=== PATIENT | male | born 1995 | race Caucasian/White ===

== ENCOUNTER 2024-09-11 08:57 | Emergency (ER) | payer OTHER, SELFPAY ==
[2024-09-11 09:49] VITALS: BP 144/97; PULSE 77; RESP 16; TEMP 36.5; O2SAT 100
--- NOTE | 2024-09-11 09:52 | ED.URI ---
HPI - URI/Sore Throat General Chief Complaint: Upper Respiratory Infection Stated Complaint: Test Flu/Covid/Strep/Pneumonia Time Seen by Provider: 09/11/24 09:52 Source: patient, RN notes reviewed and old records reviewed Mode of arrival: ambulatory Limitations: no limitations History of Present Illness HPI Narrative: 29-year-old male to Express Care with complaint sinus congestion. Patient states that 2 days ago he had a fever and a cough. Patient requesting testing for strep, COVID, influenza, pneumonia. Patient states that his [id number] is scheduled for a double mastectomy and that his insisted that he be seen today to rule out everything. Patient's only complaint today is sinus congestion. Patient resting comfortably in exam room in no acute distress. Patient able to speak in complete sentences without difficulty. Patient able to tolerate fluids by mouth. Related Data Home Medications Medication Instructions Recorded Confirmed No Home Medications 09/11/24 09/11/24 Allergies Allergy/AdvReac Type Severity Reaction Status Date / Time No Known Allergies Allergy Verified 09/11/24 09:46 Review of Systems Review of Systems: All systems reviewed & are unremarkable except as noted in HPI and below Constitutional: Constitutional: Reports no additional constitutional complaints Eyes: Eyes: Reports no additional eye complaints ENT: Reports as per HPI and Reports nasal congestion Cardiovascular: Cardiovascular: Reports no additional cardiovascular complaints, Denies chest pain and Denies dyspnea Respiratory: Respiratory: Reports no additional respiratory complaints, Denies cough and Denies dyspnea Musculoskeletal: Musculoskeletal: Reports no additional musculoskeletal complaints Neurologic: Reports system reviewed and no additional complaints, except as documented Psychiatric: Psychiatric: Reports no additional psychiatric complaints PMFSH Comments At the time of my signature, I reviewed and agree with the nursing past medical, surgical, social, and family history. There is no relevant family history pertinent to the patient complaint. Exam Const: General: cooperative, no acute distress, alert, tired appearing and well nourished Nutritional Appearance: well nourished Orientation/consciousness: patient oriented x3 Limitations: no limitations HENMT: Head: normal to inspection Ears: external ears normal Face/Nose/Sinus: Normal external nose present, Normal nares present, normal facial exam, No erythema and No edema Face and sinus: normal facial exam, no erythema and no edema Mouth: Yes Normal oral and palatal mucosa present Eyes: General: appearance normal, both eyes and all related structures Neck: Neck: normal visual inspection, full ROM and no meningeal signs Lymphatic: no lymphadenopathy noted and no lymphedema noted Chest: Chest palpation & inspection: normal inspection of the chest Resp: Effort & Inspection: normal respiratory effort and able to speak in complete sentences Auscultation: clear to auscultation bilaterally Cardio: Jugular venous distension: no JVD Rate: regular rate Rhythm: regular rhythm Back/Spine/Pelvis: Cervical Spine: cervical ROM normal Skin: General skin exam: normal color, no rashes or lesions noted and turgor normal Neuro: General: patient oriented x3, gait normal, moves all extremities and no meningeal signs Speech: normal speech Gait exam (Neuro): Normal gait present Extrem: General: normal to inspection, full ROM and capillary refill normal Psych: Appearance: grossly normal and well kempt Course Course Emergency Course: Some parts of this dictation were generated by voice recognition software and may contain typographical and/or grammatical inaccuracies. Level of Care: Express Care Visit Vital Signs Vital signs: Vital Signs Temperature 36.5 C 09/11/24 09:49 Pulse Rate 77 09/11/24 09:49 Respiratory Rate 16 09/11/24 09:49 Blood Pressure 144/97 H 09/11/24 09:49 Pulse Oximetry 100 09/11/24 09:49 Oxygen Delivery Room Air 09/11/24 09:49 Temperature 36.5 C 09/11/24 09:49 Pulse Rate 77 09/11/24 09:49 Respiratory Rate 16 09/11/24 09:49 Blood Pressure 144/97 H 09/11/24 09:49 Pulse Oximetry 100 09/11/24 09:49 Oxygen Delivery Room Air 09/11/24 09:49 reviewed MDM - URI/Sore Throat MDM Narrative Medical decision making narrative: 29-year-old male to Express Care with complaint sinus congestion. Patient states that 2 days ago he had a fever and a cough. Patient requesting testing for strep, COVID, influenza, pneumonia. Patient states that his [id number] is scheduled for a double mastectomy and that his insisted that he be seen today to rule out everything. Patient's only complaint today is sinus congestion. Patient resting comfortably in exam room in no acute distress. Patient able to speak in complete sentences without difficulty. Patient able to tolerate fluids by mouth. On exam, patient appears tired. Physical exam otherwise unremarkable. Patient tested positive for COVID in clinic. Patient is sitting comfortably in exam room nontoxic in appearance. Patient appropriate for outpatient treatment and follow-up. Discharge instructions reviewed with patient, as well as provided in writing per nursing staff. The instructions also include specific and strict return/GO TO THE ER as well as f/u information. All questions have been answered, and the patient deny any further questions with discharge and discharge plan. Some parts of this dictation were generated by voice recognition software and may contain typographical and/or grammatical inaccuracies. Differential Diagnosis Differential diagnosis: Likely upper respiratory infection, croup, otitis media, sinusitis, viral infection, bronchitis, influenza and pharyngitis Discharge Plan Discharge Clinical Impression: COVID Patient Disposition: Home, Self-Care Condition: Stable Instructions: COVID-19 (Coronavirus Disease 2019) (ED) Additional Instructions: Your symptoms are likely due to a viral illness, which is not treated with antibiotics. Viral symptoms can be present for up to a few weeks. -Alternate Tylenol and Motrin per package directions for fever or pain. -Antihistamine medication such as Benadryl at night and Zyrtec/Claritin/Jocelyn during the day can help improve symptoms. -Use Flonase twice a day for 5 days then daily to help reduce the inflammation and dry up your sinuses. -You can also use Sudafed or Mucinex. Be sure to drink plenty of water with these medications at least 8 ounces with every dose and it is important to drink 8 to 10 glasses of water per day. Water is a natural decongestant -Eat and drink things that are easy to swallow, like tea or soup, or popsicles. -Oral rinses such as: Salt water gargles and/or may use topical anesthetic (eg. Chloraseptic spray) or lozenges to relieve dryness or throat pain). -Frequent hand washing or hand soldering machine operator automatic is one of the best ways to prevent spread of infection. -Using a vaporizer or humidifier at night will also help thin secretions and help with coughing up phlegm. -Follow up with primary care provider in 2-3 days if condition is not improving; or seek ER visit if you have trouble breathing, cannot drink enough fluids, have muffled voice, difficulty opening your mouth, or severe swelling. Prescriptions: No Action No Home Medications Follow-up/Referrals: Nereyda,Petar Hui MD [Primary Care Provider] - Stand Alone Forms: Work/School Release IP
[2024-09-11 10:24] LABS: EDINFLUASCREEN Negative (Negative); EDINFLUBSCREEN Negative (Negative)
[2024-09-11 10:26] LABS: EDCOVIDSCREEN Positive (Negative)
== END 2024-09-11 10:13 | disposition home or self-care (01) ==
PROVIDERS: Emergency Provider Nurse Practitioner Family; PCP Internal Medicine
DX: U07.1 COVID-19 (principal)
CPT/HCPCS: 87426; 87804; 99212; G0463

== ENCOUNTER 2025-02-11 08:37 | Emergency (ER) | payer BC, SELFPAY ==
[2025-02-11 08:42] VITALS: BP 144/96; PULSE 88; RESP 20; TEMP 36.2; O2SAT 97
[2025-02-11 08:47] VITALS: BP 137/91
--- OUTSIDE RECORDS SUMMARY | 2025-02-11 08:59 | XMS_ITS | Clinical Summary ---
Author Organization [facility] Address [address] [place] [address] Phone Care Team Providers Care Spreader Operator Automatic Name Role Phone Unavailable Primary Care Provider Unavailabl e Allergies No known active allergies Medications SUMAtriptan (IMITREX) 100 MG Tablet Take 100 mg by mouth daily as needed. Use as directed. May repeat dose in 2 hours if headache recurs. Active albuterol 108 (90 Base) MCG/ACT Aerosol Solution take 2 Puffs by inhalation every 6 hours as needed for Cough. 6.7 g Active Immunizations Immunization Administration Dates Next Due TDAP Vaccine 05/25/2020 Social History Tobacco Use Types Packs/Day Years Used Date Smoking Tobacco: Never Smokeless Tobacco: Never Tobacco Cessation:Counseling Given: No Alcohol Use Standard Drinks/Week Comments Not Currently 0 (1 standard drink = 0.6 oz pur e alcohol) PHQ-2 Answer Date Recorded Total Score - Questions 1-9 0 05/21 Education Answer Date Recorded What is the highest level of school you have completed or the highest degree you have received? 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 GRAINER Pulse 85 11/17/2021 5:45 PM WOOD GRAINER Temperature 37.1 C (98.8 F) 11/17/2021 2:25 PM WOOD GRAINER Respiratory Rate 16 11/17/2021 5:45 PM WOOD GRAINER Oxygen Saturation 96% 11/17/2021 5:45 PM WOOD GRAINER Inhaled Oxygen Concentration - - Weight 122.5 kg (270 lb) 11/17/2021 2:25 PM WOOD GRAINER Height 172.7 cm (5' 8 ) 11/17/2021 2:25 PM WOOD GRAINER Body Mass Index 41.05 11/17/2021 2:25 PM WOOD GRAINER Plan of Treatment Health Maintenance Due Date Last Done Comments Hepatitis C Virus (HCV) Screening 1993 Influenza Immunization (#1) 2024 08/13/2021 SARS-COV-2 Immunization ( season) 2024 Respiratory Syncytial Virus (RSV) Immunization (Adult) (1 - 1-dose 75+ series) 2068 Hepatitis B Immunization Completed 994, 01/02/1994, 1993 Meningococcal Immunization (ACWY) Completed 06/01/2011, 06/05/2007 DTaP/Tdap/Td Immunization Discontinued 2019, 04/10/2006, 06/22/2005, Additional history exists Pneumococcal Immunization Combined Aged Out No longer eligible based on patient's age to complete this topic Rotavirus Immunization Aged Out No lo nger eligible based on patient's age to complete this topic Insurance
--- OUTSIDE RECORDS SUMMARY | 2025-02-11 08:59 | XMS_ITS | Data Portability ---
Author Organization LEVI NICKOLASRigoberto Stephenson Address [address] [place] [address] Assessment No assessment recorded. Plan of Treatment Reminders Order Date Submit Date Provider Last Modified By Organization Details Last Modified Time Details Appointments None recorded . Lab CBC 017 07/26/20 17 [facility] [address] [place] [address], [address], [place], [address], 7 11:14:15 CMP, serum or plasma 017 07/26/20 17 [facility], [address] [facility], [address], [place], [address], 7 11:14:16 lipid panel, serum 017 07/26/20 17 [facility], [address] [facility], [address], [place], [address], 7 11:14:16 Referral None recorded . Procedures None recorded . Surgeries None recorded . Imaging None recorded . Medication Orders None recorded . Patient TargetsNo targets recorded. Patient InstructionsNo instructions recorded. Reason for Referral None Reported. Results Created Date Observation Date Name Description Value Unit Range Abnormal Flag Note LastModifiedBy Organization Detail LastModifiedTime 07/26/20 17 07/27/2017 CBC WBC 10.2 x10e3 /uL 3.4-10 .8 Not Available [facility] ([facility]) [address] [facility], [place], [address], 07/27/2017 11:14:15 07/26/2007/27/2017 CBC RBC 5.51 x10e6 /uL 4.14-5 .80 Not Available [facility] ([facility]) [address] [place], [address], 07/27/2017 11:14:15 07/26/20 17 07/27/2017 CBC hemoglobin 16.1 g/dL 12.6-1 7.7 Not Available [facility] ([facility]) [address] [place], [address], 07/27/2017 11:14:15 07/26/20 17 07/27/2017 CBC hematocrit 45.1 % 37.5-5 1.0 Not Available [facility] ([facility]) [address] [place], [address], 07/27/2017 11:14:15 07/26/20 17 07/27/2017 CBC MCV 82 fL 79-97 Not Available [facility] ([facility]) [address] [place], [address], 07/27/2017 11:14:15 07/26/20 17 07/27/2017 CBC MCH 29.2 pg 26.6-3 3.0 Not Available [facility] ([facility]) [address] [place], [address], 07/27/2017 11:14:15 07/26/20 17 07/27/2017 CBC MCHC 35.7 g/dL 31.5-3 5.7 Not Available [facility] ([facility]) [address] [place], [address], 07/27/2017 11:14:15 07/26/20 17 07/27/2017 CBC RDW 12.7 % 12.3-1 5.4 Not Available [facility] ([facility]) [address] [place], [address], 07/27/2017 11:14:15 07/26/2007/27/2017 CBC platelets 282 x10e3 /uL 150-37 9 Not Available [facility] ([facility]) [address] [facility], [place], [address], 07/27/2017 11:14:15 07/26/2007/27/2017 CBC neutrophils 78 % Not Avai lable [facility] ([facility]) [address] [facility], [place], [address], 07/27/2017 11:14:15 07/26/2007/27/2017 CBC lymphs 13 % Not Available [facility] ([facility]) [address] [facility], [place], [address], 07/27/2017 11:14:15 07/26/2007/27/2017 CBC monocytes 8 % Not Availa ble [facility] ([facility]) [address] [facility], [place], [address], 07/27/2017 11:14:15 07/26/2007/27/2017 CBC eos 1 % Not Available [facility] ([facility]) [address] [facility], [place], [address], 07/27/2017 11:14:15 07/26/2007/27/2017 CBC basos 0 % Not Available [facility] ([facility]) [address] [facility], [place], [address], 07/27/2017 11:14:15 07/26/2007/27/2017 CBC immature cells PROCESS IMPROVEMENT ANALYST Not Available [facility] ([facility]) [address] [facility], [place], [address], 07/27/2017 11:14:15 07/26/2007/27/2017 CBC neutrophils (absolute) 7.9 x10e3 /uL 1.4-7. 0 above high normal Not Available [facility] ([facility]) [address] [facility], [place], [address], 07/27/2017 11:14:15 07/26/20 17 07/27/2017 CBC lymphs (absolute) 1.3 x10e3 /uL 0.7-3. 1 Not Available [facility] ([facility]) [address] [facility] [place], [address], 07/27/2017 11:14:15 07/26/20 17 07/27/2017 CBC monocytes(ab solute) 0.9 x10e3 /uL 0.1-0. 9 Not Available [facility] ([facility]) [address] [facility], [place], [address], 07/27/2017 11:14:15 07/26/20 17 07/27/2017 CBC eos (absolute) 0.1 x10e3 /uL 0.0-0. 4 Not Available [facility] ([facility]) [address] [facility], [place], [address], 07/27/2017 11:14:15 07/26/20 17 07/27/2017 CBC baso (absolute) 0.0 x10e3 /uL 0.0-0. 2 Not Available [facility] ([facility]) [address] [facility], [place], [address], 07/27/2017 11:14:15 07/26/2007/27/2017 CBC immature granulocytes 0 % Not Available [facility] ([facility]) [address] [facility], [place], [address], 07/27/2017 11:14:15 07/26/2007/27/2017 CBC immature grans (abs) 0.0 x10e3 /uL 0.0-0. 1 Not Available [facility] ([facility]) [address] [facility] [place], [address], 07/27/2017 11:14:15 07/26/2007/27/2017 CBC NRBC PROCESS IMPROVEMENT ANALYST Not Available [facility] ([facility]) [address] [facility], [place], [address], 07/27/2017 11:14:15 07/26/20 17 07/27/2017 CBC hematology comments: PROCESS IMPROVEMENT ANALYST Not Available [facility] ([facility]) [address] [place], [address], 07/27/2017 11:14:15 07/26/20 17 07/27/2017 CMP, serum or plasm a glucose, serum 107 mg/dL 65-99 above high normal Speci men recei jose a in conta ct with cells . No visib le hemol ysis prese nt. Howev er GLUC may be decre ased and K incre ased. Clini dwayne corre latio n indic ated. Not Available [facility] ([facility]) [address] [facility] [place], [address], 07/27/2017 11:14:16 07/26/20 17 07/27/2017 CMP, serum or plasm a BUN 9 mg/dL 6-20 Not Available [facility] ([facility]) [address] [facility] [place], [address], 07/27/2017 11:14:16 07/26/20 17 07/27/2017 CMP, serum or plasm a creatinine, serum 1.00 mg/dL 0.76-1 .27 Not Available [facility] ([facility]) [address] [facility] [place], [address], 07/27/2017 11:14:16 07/26/20 17 07/27/2017 CMP, serum or plasm a eGFR if nonafricn AM 106 mL/mi n/1.7 3 >59 Not Available [facility] ([facility]) [address] [facility] [place], [address], 07/27/2017 11:14:16 07/26/20 17 07/27/2017 CMP, serum or plasm a eGFR if africn AM 122 mL/mi n/1.7 3 >59 Not Available [facility] ([facility]) [address] [facility] [place], [address], 07/27/2017 11:14:16 07/26/20 17 07/27/2017 CMP, serum or plasm a BUN/creatini ne ratio 9 9-20 Not Available [facility] ([facility]) [address] [place], [address], 07/27/2017 11:14:16 07/26/20 17 07/27/2017 CMP, serum or plasm a sodium, serum 141 mmol/ L 134-14 4 Not Available [facility] ([facility]) [address] [place] [address], [address], 07/27/2017 11:14:16 07/26/20 17 07/27/2017 CMP, serum or plasm a potassium, serum 4.1 mmol/ L 3.5-5. 2 Not Available [facility] ([facility]) [address] [place] [address], [address], 07/27/2017 11:14:16 07/26/20 17 07/27/2017 CMP, serum or plasm a chloride, serum 100 mmol/ L 96-106 Not Available [facility] ([facility]) [address] [place], [address], 07/27/2017 11:14:16 07/26/20 17 07/27/2017 CMP, serum or plasm a carbon dioxide, total 20 mmol/ L 18-29 Not Available [facility] ([facility]) [address] [place], [address], 07/27/2017 11:14:16 07/26/20 17 07/27/2017 CMP, serum or plasm a calcium, serum 9.6 mg/dL 8.7-10 .2 Not Available [facility] ([facility]) [place], [address], 07/27/2017 11:14:16 07/26/20 17 07/27/2017 CMP, serum or plasm a protein, total, serum 6.9 g/dL 6.0-8. 5 Not Available [facility] ([facility]) [address] [place], [address], 07/27/2017 11:14:16 07/26/20 17 07/27/2017 CMP, serum or plasm a albumin, serum 4.4 g/dL 3.5-5. 5 Not Available [facility] ([facility]) [address] [facility] [place], [address], 07/27/2017 11:14:16 07/26/20 17 07/27/2017 CMP, serum or plasm a globulin, total 2.5 g/dL 1.5-4. 5 Not Available [facility] ([facility]) [address] [facility], [place], [address], 07/27/2017 11:14:16 07/26/20 17 07/27/2017 CMP, serum or plasm a A/G ratio 1.8 1.2-2. 2 Not Available [facility] ([facility]) [address] [facility], [place], [address], 07/27/2017 11:14:16 07/26/20 17 07/27/2017 CMP, serum or plasm a bilirubin, total 0.8 mg/dL 0.0-1. 2 Not Available [facility] ([facility]) [address] [facility], [place], [address], 07/27/2017 11:14:16 07/26/20 17 07/27/2017 CMP, serum or plasm a alkaline phosphatase, S 69 IU/L 39-117 Not Available [facility] ([facility]) [address] [facility], [place], [address], 07/27/2017 11:14:16 07/26/20 17 07/27/2017 CMP, serum or plasm a AST (SGOT) 19 IU/L 0-40 Not Available [facility] ([facility]) [address] [facility] [place], [address], 07/27/2017 11:14:16 07/26/20 17 07/27/2017 CMP, serum or plasm a ALT (SGPT) 22 IU/L 0-44 Not Available [facility] ([facility]) [address] [facility], [place], [address], 07/27/2017 11:14:16 07/26/20 17 07/27/2017 lipid panel , serum cholesterol, total 177 mg/dL 100-19 9 Not Available [facility] ([facility]) [address] [facility], [place], [address], 07/27/2017 11:14:16 07/26/2007/27/2017 lipid panel , serum triglyceride s 121 mg/dL 0-149 Not Available [facility] ([facility]) [address] [facility] [place] [place], [address], 07/27/2017 11:14:16 07/26/2007/27/2017 lipid panel , serum HDL cholesterol 44 mg/dL >39 Not Available [facility] ([facility]) [address] [facility], [place], [address], 07/27/2017 11:14:16 07/26/20 17 07/27/2017 lipid panel , serum VLDL cholesterol dwayne 24 mg/dL 5-40 Not Available [facility] ([facility]) [address] [place] [address], [place], [address], 07/27/2017 11:14:16 07/26/2007/27/2017 lipid panel , serum LDL cholesterol calc 109 mg/dL 0-99 above high normal Not Available [facility] ([facility]) [address] [facility], [place], [address], 07/27/2017 11:14:16 07/26/2007/27/2017 lipid panel , serum comment: PROCESS IMPROVEMENT ANALYST Not Available [facility] ([facility]) [address] [place] [address], [place], [address], 07/27/2017 11:14:16 07/26/20 17 07/27/2017 lipid panel , serum LDL/HDL ratio 2.5 ratio _unit s 0.0-3. 6 LDL/H DL Ratio Men Women 1/2 Avg.R isk 1.0 1.5 Avg.R isk 3.6 3.2 2X Avg.R isk 6.2 5.0 3X Avg.R isk 8.0 6.1 Not Available [facility] ([facility]) [address] [place], [address], 07/27/2017 11:14:16 07/26/20 17 07/27/2017 cardi ovasc ular asses sment panel , serum interpretati on Note Suppl ement repor t is avail able. Not Available [facility] ([facility]) [address] [place], [address], 07/27/2017 11:14:17 07/26/20 17 07/27/2017 cardi ovasc ular asses sment panel , serum pdf image . Not Available [facility] ([facility]) [address] [facility], [place], [address], 07/27/2017 11:14:17 Result Notes None recorded. Procedures Surgical History Date Name Laterality Status Provider Name and Address Organization Details Recorded Time Back Surgery completed Tiera Samaniego MA [facility] 07/26/2017 10:47:26 Hernia Repair completed Tiera Samaniego MA [facility] 07/26/2017 10:47:33 Tonsillectomy completed Tiera Samaniego MA [facility] 07/26/2017 10:47:44 Imaging Results None recorded. Procedure Notes None recorded. Medical Equipment None Reported. Allergies No known drug allergies Medications Not known to be on any medication Vitals Date Recorded Body weight Body height Body mass index (BMI) Body temperature Oxygen saturation Oxygen saturation in Arterial blood by Pulse oximetry Heart rate Systolic blood pressure Diastolic blood pressure Provider Name and Address Organization Details Last Updated DateTime 7 555551. 24 g 172.72 cm 39.1 kg/m2 98.4 [degF] 97 % 97 % 100 /min 130 mm[Hg] 86 mm[Hg] Tiera Samaniego MA [facility] 7 10:52:40 Social History Question Answer Notes LastModified by Organizat ion Details LastModified Time Tobacco Smoking Status Never Smoker Tiera INOCENCIO Samaniego null, [facility] 07/26/2017 10:47:52 What Was The Date Of Your Most Recent Tobacco Screening? 07/26/2017 Information n ot available 06/12/2019 Sex: Unknown Functional Status None recorded. Mental Status None recorded. Family History Relationship Description Onset Age of this Age Resolved Age Notes LastModified by Organization Details LastModified Time Mother Diabetes mellitus [email or web address] Not available 05/2017 10:48:04 Medical History No medical history recorded. Past Encounters Encounter ID Performer Location Encounter Start Date Encounter Closed Date Diagnosis/Indication Diagnosis SNOMED-CT Code Diagnosis ICD10 Code Diagnosis Note [id number] Federico Nicholson PA-C [place] [address] [place] [facility] [place] [address] 07/26/2017 10:32:23 07/26/2017 12:53:37 Viral gastroenteritis caused by [place]-like agent 18399444 A08.11 Health Concerns Section Related Observation LastModified by Organization Detai ls LastModified Time None Recorded Concern Status LastModified by Organization Details LastModified Time None Recorded Advance Directives Directive None Recorded Payers Encounter Date Sequence Insurance Name Policy Number Policy Ayala Covered Member ID Ayala Member ID Guarantor Name 07/26/2017 1 [facility] [id number] William Morataya [id number] William Morataya Notes Date Note Type Note Provider Name and Address Organization Details Recorded Time 07/26/2017 text/html symptoms began 2 days ago. chills aches. became stomach cramps headache diarrhea. last food. last vomit 2 days ago. last diarrhea this morning. Federico Nicholson PA-C Attn: [employer],[address] [place], [address], [facility] 07/26/2017 11:10:01
--- OUTSIDE RECORDS SUMMARY | 2025-02-11 08:59 | XMS_ITS | Data Portability ---
Author Organization ID - [facility]- Address # [address] [facility] [place] [id number] Assessment Encounter Date Assessment Date Assessment LastModified by Organization Details LastModified Time 09/11/2023 09/11/2023 Information regarding the particular vaccine that patient is receiving today was presented to the parent(s). All questions were answered Not available 09/11/2023 18:54:35 08/30/2024 08/30/2024 Information regarding the particular vaccine that patient is receiving today was presented to the parent(s). All questions were answered [email or web address] Not available 08/27/2024 13:21:47 Plan of Treatment Reminders Order Date Submit Date Provider Last Modified By Organization Details Last Modified Time Details Appointments None record ed. Lab None record ed. Referral None record ed. Procedures None record ed. Surgeries None record ed. Imaging None record ed. Medication Orders None record ed. Patient TargetsNo targets recorded. Patient Instructions Encounter Date Encounter Id Patient Instructions Last Modified By Organization Details Last Modified Time 08/19/2022 [id number] influenza (flu) vaccine (inactivated or recombinant): what you need to know [email or web address] Not available 08/19/2022 08:30:06 09/11/2023 [id number] influenza (flu) vaccine (inactivated or recombinant): what you need to know Not available 09/11/2023 18:54:39 08/30/2024 [id number] influenza (flu) vaccine (inactivated or recombinant): what you need to know [email or web address] Not available 08/30/2024 11:34:44 Reason for Referral None Reported. Problems No Known Problems Medical Equipment None Reported. Allergies No known drug allergies Medications Not known to be on any medication Vitals None Recorded Social History None recorded. Functional Status None recorded. Mental Status None recorded. Family History Nothing Reported. Medical History No medical history recorded. Immunizations Vaccine Type Date Status Note Provider Nam e and Address Organization Details Recorded Time Influenza, split virus, quadrivalent, PF 08/13/2021 completed Haydee Dejonvicente null, [facility], 08/13/2021 12:52:35 Influenza, split virus, quadrivalent, PF 08/19/2022 completed Adamaris Ernst null, [facility], 08/19/2022 13:03:09 Influenza, split virus, quadrivalent, PF 09/11/2023 completed Haydee Silver [facility], 09/12/2023 08:55:19 Influenza, split virus, trivalent, PF 08/30/2024 completed Maty Caballero [facility], 08/30/2024 11:53:45 Past Encounters Encounter ID Performer Location Encounter Start Date Encounter Closed Date Diagnosis/Indication Diagnosis SNOMED-CT Code Diagnosis ICD10 Code Diagnosis Note [id number] Haydee Nadeem [facility] [address] [place] [phone] 08/13/2021 08:08:56 08/15/2021 14:51:59 Active or passive immunization [id number] Z23 [id number] Adamaris Ernst [facility] [address] [place] [id number] 08/19/2022 08:12:41 08/21/2022 12:01:36 Active or passive immunization [id number] Z23 [id number] HENRI VILLEGAS [facility] [address] [place] [id number] 09/11/2023 18:49:58 09/11/2023 19:52:49 Active or passive immunization [id number] Z23 [id number] Maty Caballero [facility] [address] [place] [id number] 08/30/2024 08:36:57 08/30/2024 20:09:54 Active or passive immunization [id number] Z23 Health Concerns Section Related Observation LastModified by Organization Detai ls LastModified Time None Recorded Concern Status LastModified by Organization Details LastModified Time None Recorded Advance Directives Directive None Recorded Payers Encounter Date Sequence Insurance Name Policy Number Policy Ayala Covered Member ID Ayala Member ID Guarantor Name 08/13/2021 1 [facility]: (PPO) [id number] William Chopra Doersam [id number] William Doersam 08/19/2022 1 [facility]: (PPO) [id number] William Chopra Doersam [id number] William Doersam 09/11/2023 2 *SELF PAY* Amandeep vickie Doersam 09/11/2023 1 [facility]: (PPO) [id number] William Estradaam [id number] William Doersam 08/30/2024 2 *SELF PAY* Amandeep vickie Doersam 08/30/[address] [facility] [id number] William Morataya [id number] William Morataya
--- NOTE | 2025-02-11 09:10 | ED.URI ---
HPI - URI/Sore Throat General Chief Complaint: Upper Respiratory Infection Stated Complaint: Cough/Chest Congestion Source: patient Mode of arrival: ambulatory Limitations: no limitations History of Present Illness HPI Narrative: 29-year-old male presented for complaint of a cough, onset last night. States his and son have been diagnosed with bronchitis, and he is concerned for the same. He denies any shortness of breath, wheezing nausea vomiting diarrhea, fevers or chills. Has not taken anything for symptoms. Related Data Allergies Allergy/AdvReac Type Severity Reaction Status Date / Time No Known Allergies Allergy Verified 09/11/24 09:46 Review of Systems Review of Systems: CONSTITUTIONAL: Denies body aches, fever, chills, or sweats. EYES: Denies visual changes, redness, or discharge. ENT: Denies rhinorrhea, congestion, sore throat, or otalgia. CARDIOVASCULAR: Denies chest pain, palpitations, or edema. RESPIRATORY: Reports cough, denies sob, wheezing. GASTROINTESTINAL: Denies abdominal pain, nausea, vomiting, or diarrhea. GENITOURINARY: Denies dysuria or hematuria. SKIN: Denies rash NEUROLOGIC: Denies headache, numbness, tingling, or weakness. All systems reviewed & are unremarkable except as noted in HPI and below PMFSH Comments At time of signature, I have reviewed and agree with nursing past medical, surgical, social and family history unless otherwise noted. Please see nursing chart for further information. There is no relevant family history pertinent to the presenting complaint Exam Narrative: GENERAL: Well-appearing, in no acute distress. EYES: EOMI. No redness or drainage. Conjunctivae normal. ENT: Mucous membranes pink and moist. No rhinorrhea. TMs normal bilaterally. Throat normal. Uvula midline. NECK: Normal AROM. Supple. CHEST: No respiratory distress. lungs clear to all govea. no cough. HEART: Regular rate and rhythm. No murmur appreciated. SKIN: Warm, dry, no rash. Capillary refill normal. Normal skin turgor. NEURO: Alert and oriented x3. Gait steady. PSYCH: Normal affect. Course Course Emergency Course: Patient is aware of diagnosis, understands and agrees to treatment plan. Anticipatory guidance given. Patient agrees to follow-up as directed and is aware of reasons to seek care at the emergency department. Portions of this record may have been created with voice recognition software Level of Care: Express Care Visit Vital Signs Vital signs: Vital Signs Temperature 97.1 F L 02/11/25 08:42 Pulse Rate 88 02/11/25 08:42 Respiratory Rate 20 02/11/25 08:42 Blood Pressure 144/96 H 02/11/25 08:42 Pulse Oximetry 97 02/11/25 08:42 Oxygen Delivery Room Air 02/11/25 08:42 Temperature 97.1 F L 02/11/25 08:42 Pulse Rate 88 02/11/25 08:42 Respiratory Rate 20 02/11/25 08:42 Blood Pressure 137/91 H 02/11/25 08:47 Pulse Oximetry 97 02/11/25 08:42 Oxygen Delivery Room Air 02/11/25 08:42 MDM - URI/Sore Throat MDM Narrative Medical decision making narrative: Discussed physical exam findings, c/w viral infection. Discussed the potential to develop bronchitis and advised OTC meds for now, and if sx worsen he can start steroid. Advised supportive measures and signs/symptoms to go to the ER. Pt is appropriate for outpt treatment and f/u. Differential Diagnosis Differential diagnosis: Likely upper respiratory infection, sinusitis, viral infection and bronchitis Discharge Plan Discharge Clinical Impression: Viral infection Patient Disposition: Home, Self-Care Condition: Stable Instructions: Antibiotic Form, Acute Bronchitis (ED) Additional Instructions: Acute bronchitis can be contagious because it is usually caused by infection with a virus or bacteria. It is usually for a few days but you can be contagious for up to one week. Take medication as directed Recommendations: over the counter Cough syrup may cause drowsiness; avoid driving or take it at night time. Tylenol 1000mg every 8 hours as needed for pain Flonase spray and Zyrtec (or Claritin/Jocelyn) if you have nasal drainage Symptomatic treatment includes: rest, fluids, and increase humidity of the air at home. Follow up with your primary care provider as needed in 1 week Go to the ER for worsening symptoms or concerns Patient Language: South Korean Prescriptions: New benzonatate 200 mg capsule 200 mg PO TID PRN (Reason: cough) Qty: 20 0RF methylprednisolone [Medrol (Juan David)] 4 mg tablets,dose pack See Rx Instructions .ROUTE .COMPLEX Qty: 21 0RF Rx Instructions: orally per package directions Follow-up/Referrals: Nereyda,Petar Hui MD [Primary Care Provider] -
== END 2025-02-11 09:23 | disposition home or self-care (01) ==
PROVIDERS: Emergency Provider Nurse Practitioner Family; PCP Internal Medicine
DX: B34.9 Viral infection, unspecified (principal)
CPT/HCPCS: 99213; G0463